=== PATIENT | female | born 1970 | race Caucasian/White ===

== ENCOUNTER 2019-11-13 23:35 | Emergency (ER) | payer MEDICARE, MEDICAID, SELFPAY ==
[2019-11-13 23:36] VITALS: BMI 26.5
[2019-11-13 23:43] VITALS: BP 122/75; PULSE 101; RESP 24; TEMP 36.8; O2SAT 97
--- NOTE | 2019-11-13 23:49 | XRR_ITS ---
PROCEDURE INFORMATION: Exam: XR Chest, 1 View Exam date and time: 11/14/2019 1:04 AM Age: 49 years old Clinical indication: Patient HX: Chest pain with deep inspiration for few days and cough. HX of copd. Shortness of breath TECHNIQUE: Imaging protocol: XR of the chest Views: 1 view. COMPARISON: CR Chest 1 [place] [id number] 10/01/2015 3:09 AM FINDINGS: Lungs: Hyperinflation of the lungs is compatible with COPD. Pleural space: Unremarkable. No pleural effusion. No pneumothorax. Heart/Mediastinum: Unremarkable. No cardiomegaly. Bones/joints: Unremarkable. XR/XR chest 1V portable [id number] IMPRESSION: No acute abnormality.
--- NOTE | 2019-11-13 23:49 | ECG_ITS ---
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 Measurements Intervals [place] Rate: 90 P: 82 NE: 135 QRS: 78 QRSD: 80 T: 76 QT: 321 QTc: 393 Interpretive Statements SINUS RHYTHM Compared to ECG 10/01/2015 02:58:49 No significant changes Electronically Signed On 11-14-2019 17:43:29 CDT by Javon Little M.D. [email or web address] [place] LimitedEstrela Digitalmercy health st[facility].[employer]store/[id number] f
--- NOTE | 2019-11-13 23:53 | ED_ITS ---
HPI - Chest Pain General: Chief Complaint: Chest Pain Stated Complaint: CP Time Seen by Provider: 11/13/19 23:44 History of Present Illness: HPI narrative: Patient complains about chest pain with deep inspiration been going on for a few days has a cough. Says she is been sick for 2 years. She drinks daily. Also smokes 1 to 2 packs cigarettes daily. Has been off anxiety medicine for quite a while. Does take blood pressure medicine. MD complaint: chest discomfort Onset (ago): day(s) Prior episodes: Yes Associated symptoms: Reports dyspnea; Deny abdominal pain, fever(s), nausea or vomiting Review of Systems Const: Denies: fever(s), chills or body aches Eyes: Denies: change in vision or blurry vision ENMT: Denies: throat pain or nasal congestion Card: Denies: chest pain or dyspnea on exertion Resp: Reports: dyspnea, productive cough and pain on inspiration; Denies: non-productive cough GI: Denies: abdominal pain, nausea or vomiting Musc: Denies: extremity pain Skin/Breast: Denies: rash Neuro: Denies: headache(s) Psych: Reports: anxiety; Denies: depression You/Lymph: Denies: easy bruising Physical Exam Const: COMMON NORMALS: no acute distress, average body habitus and patient oriented x3 HENMT: COMMON NORMALS: normocephalic HEAD & SCALP: normal to inspection and normocephalic FACE & SINUS: normal facial exam Eye: COMMON NORMALS: conjunctivae normal GENERAL EYE: appearance normal, both eyes and all related structures CONJUNCTIVA: Yes conjunctivae normal Neck/C-Spine: COMMON NORMALS: no JVD Chest: COMMONS NORMALS: normal inspection of the chest Resp: COMMON NORMALS: normal respiratory effort and clear to auscultation bilaterally AUSCULTATION: clear to auscultation bilaterally Cardio: COMMON NORMALS: no JVD, regular rate and regular rhythm RATE: regular rate RHYTHM: regular rhythm GI: COMMON NORMALS: Normal to inspection, nondistended, normoactive bowel sounds present Extremity: COMMON NORMALS: normal to inspection and full ROM Neuro: COMMON NORMALS: patient oriented x3 Psych: MOOD & AFFECT: Yes anxious Course Vital Signs: Vital signs: Vital Signs Temperature 98.3 F 11/13/19 23:43 Pulse Rate 99 07/01/20 01:15 Respiratory Rate 23 H 11/14/19 01:15 Blood Pressure 124/98 11/14/19 01:15 Pulse Oximetry 96 11/14/19 01:15 MDM - Chest Pain Lab Data: Labs: Lab Results 11/13/19 11/14/19 11/14/19 Range/Units 23:59 00:03 00:03 WBC 7.9 (4.0-10.0) 10^3/ uL RBC 4.55 (4.1-5.3) 10^6/u L Hgb 13.3 (11.5-15.3) g/dL Hct 40.6 (37.0-47.0) % MCV 89.2 (81-99) fL MCH 29.2 (28.0-34.0) pg MCHC 32.8 (30.0-36.0) g/dL RDW 13.8 (12.1-15.1) % Plt Count 325 (130-400) 10^3/c mm MPV 9.1 (7.4-10.4) fL Neut % (Auto) 70.1 % Lymph % (Auto) 20.3 % [place] % (Auto) 7.8 % Eos % (Auto) 0.6 % Baso % (Auto) 0.8 % Neut # (Auto) 5.6 (1.8-7.7) 10^3/u L Lymph # (Auto) 1.6 (0.8-4.8) 10^3/u L [place] # (Auto) 0.6 (0.2-0.9) 10^3/u L Eos # (Auto) 0.1 (0.0-0.8) 10^3/u L Baso # (Auto) 0.1 (0.0-0.1) 10^3/u L Nucleated RBC % (a uto) 0 % Nucleated RBCs # 0.0 /100WBC Sodium 127 L (136-145) mmol/L Potassium 4.5 (3.5-5.1) mmol/L Chloride 88 L (98-107) mmol/L Carbon Dioxide 23 (22-29) mmol/L Anion Gap 20.5 H (5-19) BUN 5 L (6-20) mg/dL Creatinine 0.4 L (0.5-0.9) mg/dL GFR Calculation 169.0 H (90-130) mL/min Glucose 85 (65-115) mg/dL Calculated Osmolal ity 259 L (285-295) mOsm/k g Calcium 8.9 (8.5-10.5) mg/dL Total Bilirubin 0.2 (0.15-1.2) mg/dL AST 49 H (0-32) U/L ALT 46 H (0-33) U/L Alkaline Phosphata se 90 (35-105) IU/L Troponin T Baselin e 14 H (0-10) ng/L Troponin T 120 Min [place] (0-10) ng/L Delta Troponin T (0-10) ABS# Total Protein 7.3 (6.6-8.7) g/dL Albumin 4.1 (3.5-5.2) g/dL Globulin 3.2 (1.3-4.6) g/dL 11/14/19 Range/Units 01:43 WBC (4.0-10.0) 10^3/ uL RBC (4.1-5.3) 10^6/u L Hgb (11.5-15.3) g/dL Hct (37.0-47.0) % MCV (81-99) fL MCH (28.0-34.0) pg MCHC (30.0-36.0) g/dL RDW (12.1-15.1) % Plt Count (130-400) 10^3/c mm MPV (7.4-10.4) fL Neut % (Auto) % Lymph % (Auto) % [place] % (Auto) % Eos % (Auto) % Baso % (Auto) % Neut # (Auto) (1.8-7.7) 10^3/u L Lymph # (Auto) (0.8-4.8) 10^3/u L [place] # (Auto) (0.2-0.9) 10^3/u L Eos # (Auto) (0.0-0.8) 10^3/u L Baso # (Auto) (0.0-0.1) 10^3/u L Nucleated RBC % (a uto) % Nucleated RBCs # /100WBC Sodium (136-145) mmol/L Potassium (3.5-5.1) mmol/L Chloride (98-107) mmol/L Carbon Dioxide (22-29) mmol/L Anion Gap (5-19) BUN (6-20) mg/dL Creatinine (0.5-0.9) mg/dL GFR Calculation (90-130) mL/min Glucose (65-115) mg/dL Calculated Osmolal ity (285-295) mOsm/k g Calcium (8.5-10.5) mg/dL Total Bilirubin (0.15-1.2) mg/dL AST (0-32) U/L ALT (0-33) U/L Alkaline Phosphata se (35-105) IU/L Troponin T Baselin e (0-10) ng/L Troponin T 120 Min [place] 13.76 H (0-10) ng/L Delta Troponin T -0.24 L (0-10) ABS# Total Protein (6.6-8.7) g/dL Albumin (3.5-5.2) g/dL Globulin (1.3-4.6) g/dL EKG Data^: EKG 1: EKG interpretation date: 11/14/19 EKG interpretation time: 00:15 Interpretation: Normal sinus rhythm ventricular rate 90 bpm NC intervals 135 ms QRS durations 80 ms Discharge Plan Discharge Patient Disposition: Home, Self-Care Clinical Impression: Atypical chest pain, Pleurisy Condition: Stable Prescriptions: New Medrol (Jean) 4 mg tablets,dose pack See Rx Instructions .ROUTE .COMPLEX Qty: 21 RF: 0 Discharge Orders: Discharge Order (Routine); Ordered 11/14/19 Ordered By: Maksim Aguero Discharge Diet: Usual diet Discharge Activity: Increase activity as tolerated Patient Instructions: Pleurisy (ED), Emphysema (ED), Abuse of Alcohol (ED) Activity Restrictions/Additional Instructions: Follow-up with medical provider as directed. Take medications as prescribed. Return to the ER or your medical provider if condition worsens. Please read and understand discharge instructions. If any questions ask please. Recommend cutting back on smoking try and stop altogether decrease alcohol intake follow- up your family medical provider soon as possible Coding Level of Care Code ED Bevel Operator for Dariusg Fwd Exam Comprehensive
[2019-11-14] VITALS (33 sets, daily range): BP systolic 115–141; BP diastolic 63–98; PULSE 68–118; RESP 14–28; O2SAT 89–99
[2019-11-14 00:13] LABS: Basophils # 0.1 10^3/uL (0.0-0.1); Basophils % 0.8 %; Eosinophils # 0.1 10^3/uL (0.0-0.8); Eosinophils % 0.6 %; Hematocrit 40.6 % (37.0-47.0); Hemoglobin 13.3 g/dL (11.5-15.3); Lymphocytes # 1.6 10^3/uL (0.8-4.8); Lymphocytes % 20.3 %; Mean Corpuscular HGB Conc 32.8 g/dL (30.0-36.0); Mean Corpuscular Hemoglobin 29.2 pg (28.0-34.0); Mean Corpuscular Volume 89.2 fL (81-99); Mean Platelet Volume 9.1 fL (7.4-10.4); Monocytes # 0.6 10^3/uL (0.2-0.9); Monocytes % 7.8 %; Neutrophils # 5.6 10^3/uL (1.8-7.7); Neutrophils % 70.1 %; Nucleated Red Blood Cells % 0 %; Platelet Count 325 10^3/cmm (130-400); Red Blood Count 4.55 10^6/uL (4.1-5.3); Red Cell Distribution Width 13.8 % (12.1-15.1); White Blood Count 7.9 10^3/uL (4.0-10.0)
[2019-11-14] MEDS: LORazepam 2 mg/mL INJ 1 mL IVP (00:19)
[2019-11-14 00:38] LABS: Alanine Aminotransferase 46 U/L (0-33); Albumin Level 4.1 g/dL (3.5-5.2); Alkaline Phosphatase 90 IU/L (35-105); Anion Gap 20.5 (5-19); Aspartate Amino Transferase 49 U/L (0-32); Blood Urea Nitrogen 5 mg/dL (6-20); Calcium 8.9 mg/dL (8.5-10.5); Carbon Dioxide 23 mmol/L (22-29); Chloride 88 mmol/L (98-107); Globulin 3.2 g/dL (1.3-4.6); Glucose 85 mg/dL (65-115); Osmolality Calculated 259 mOsm/kg (285-295); Potassium 4.5 mmol/L (3.5-5.1); Sodium 127 mmol/L (136-145); Total Bilirubin 0.2 mg/dL (0.15-1.2); Total Protein 7.3 g/dL (6.6-8.7)
[2019-11-14 00:39] LABS: Troponin(5th) Baseline 14 ng/L (0-10)
[2019-11-14] MEDS: ketorolac 30 mg/mL INJ IVP (00:44)
[2019-11-14] MEDS: sodium chloride 0.9% 1,000 ML 999 ML IV (01:04)
--- NOTE | 2019-11-14 01:53 | ECG_ITS ---
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 Measurements Intervals [place] Rate: 90 P: 82 VA: 135 QRS: 78 QRSD: 80 T: 76 QT: 321 QTc: 393 Interpretive Statements SINUS RHYTHM Compared to ECG 10/01/2015 02:58:49 No significant changes Electronically Signed On 11-14-2019 17:45:46 CDT by Javon Little M.D. [email or web address] Digitalw[facility].[employer]/store/NU/[id number] f
[2019-11-14 02:02] LABS: Troponin 5 2HR 13.76 ng/L (0-10)
[2019-11-14 02:04] LABS: Troponin 5 2HR Delta -0.24 ABS# (0-10)
== END 2019-11-14 02:53 | disposition home or self-care (01) ==
PROVIDERS: Emergency Provider Nurse Practitioner Family
DX: R07.89 Other chest pain (principal); R09.1 Pleurisy
CPT/HCPCS: 12345; 36415; 71045; 80053; 84484; 85025; 93005; 96361; 96374; 96375; 99284; J1885; J2060; J2930; J7030

== ENCOUNTER 2020-12-13 20:56 | Emergency (ER) | payer MEDICARE, MEDICAID, SELFPAY ==
[2020-12-13 21:00] VITALS: BP 160/95; PULSE 101; RESP 20; TEMP 36.6; O2SAT 96; BMI 22.8
[2020-12-13 21:08] VITALS: PULSE 101; RESP 19; O2SAT 95
--- NOTE | 2020-12-13 21:35 | PC.NURSE ---
patient refused labs and urine. she states she just wanted detox and doesnt want psychiatric care. she denies suicidal and homicidal ideations. she states her is here and she wants to leave now and go home. I discussed with Dr Stubbs he states if patient wants to leave just have her sign an AMA. I then went to patient with AMA form. she refuses to sign the AMA and leaves with her at 2150
[2020-12-13 21:53] VITALS: BP 140/77; PULSE 98; RESP 18; O2SAT 96
--- NOTE | 2020-12-13 21:58 | W.ED.PSYCH ---
HPI - Psych General: Chief Complaint: Psychiatric Symptoms Stated Complaint: depressed and etoh Time Seen by Provider: 12/13/20 21:04 History of Present Illness: HPI Narrative: The patient is a 50-year-old female who comes to the ER intoxicated. She complains of depression. She denies suicidal, homicidal ideations as well as psychotic symptoms. She says she has drank alcohol today and all she wants is alcohol detox. I informed her we do not specifically do alcohol detox but if she stays we could check her out and give her information for alcohol detox places. I discussed with the psychiatrist who would also be willing to keep her overnight observation for her mental health issues. This was relayed to the patient and she said she did not need help with mental health she needed detox from alcohol. She is not suicidal. She requested to leave AGAINST MEDICAL ADVICE and signed and left on her own. I was providing care in another room and not able to discuss with her the AMA discharge. The nurse told her she could return at any time for evaluation. She is alert and oriented x4 walking and talking well. She understood the consequences of her actions. MD complaint: feels depressed Context: recent alcohol abuse Associated psychiatric symptoms: depression Associated symptoms: Reports no associated symptoms and depression; Deny auditory hallucinations, visual hallucinations, delusions, homicidal ideation or suicidal ideation Review of Systems General: Reports: 10 or more systems reviewed and unremarkable except in HPI and below Const: Denies: fatigue Eyes: Denies: change in vision, blurry vision or eye redness ENMT: Denies: throat pain, swelling of lips/tongue, ear or mastoid pain or nasal congestion Card: Denies: chest pain, palpitations, irregular heart rhythm, edema, dyspnea on exertion or orthopnea Resp: Denies: dyspnea, productive cough or non-productive cough GI: Denies: abdominal pain, diarrhea or GI cramping : Denies: flank pain, difficulty voiding, urinary frequency or urinary urgency Musc: Denies: neck pain, back pain, extremity pain, joint pain, joint redness, limited range of motion or muscle weakness Skin/Breast: Denies: rash, pruritus, erythema, skin pain or skin tenderness Neuro: Denies: headache(s), numbness in extremities, weakness in extremities, sensory changes, difficulty walking, dizziness, confusion or Slurred speech present Psych: Reports: depression; Denies: visual hallucinations, auditory hallucinations, suicidal ideation or homicidal ideation Endo: Denies: polyuria All/Imm: Denies: urticaria, throat swelling or tongue swelling Physical Exam Const: COMMON NORMALS: no acute distress, average body habitus, patient oriented x3, no limitations, healthy appearing, alert and well nourished GENERAL APPEARANCE: cooperative, comfortable, well kempt and well developed ORIENTATION/CONSCIOUSNESS: Yes awake, Yes oriented to person, Yes oriented to place and Yes oriented to time HENMT: COMMON NORMALS: normocephalic, external ears normal and Normal external nose present HEAD & SCALP: normal to inspection and normocephalic NOSE: Normal external nose present EXTERNAL EAR: Yes external ears normal MOUTH: Normal oral and palatal mucosa present THROAT: posterior oropharynx normal Eye: COMMON NORMALS: Equal, round and reactive pupils present and EOMs intact bilaterally GENERAL EYE: appearance normal, both eyes and all related structures PUPIL: Yes Equal, round and reactive pupils present Neck/C-Spine: COMMON NORMALS: full ROM, no lymphadenopathy, no meningeal signs and no JVD GENERAL: Yes normal visual inspection Lymph: LYMPHATIC: no lymphadenopathy noted Chest: COMMONS NORMALS: normal inspection of the chest and normal palpation of entire chest wall Resp: COMMON NORMALS: normal respiratory effort, No retractions, No use of accessory muscles, clear to auscultation bilaterally and percussion normal EFFORT & INSPECTION: Yes able to speak in complete sentences AUSCULTATION: clear to auscultation bilaterally PERCUSSION: percussion normal Cardio: COMMON NORMALS: no JVD, regular rate, regular rhythm, S1 normal heart sound present, S2 normal heart sound present and Peripheral pulses 2+ throughout RATE: regular rate RHYTHM: regular rhythm HEART SOUNDS: S1 normal heart sound present and S2 normal heart sound present PERIPHERAL PULSES: Peripheral pulses 2+ throughout GI: COMMON NORMALS: Normal to inspection, nondistended, normoactive bowel sounds present, Soft to palpation, non-tender and no masses INSPECTION: Yes normal to inspection PALPATION: Yes Soft to palpation : COMMON NORMALS: Yes no CVA tenderness BLADDER/KIDNEY EXAM: Yes no CVA tenderness Back/Pelvis: COMMON NORMALS: no CVA tenderness, thoracic and lumbar spine normal to inspection, no thoracic nor lumbar tenderness and thoraco-lumbar ROM normal Extremity: COMMON NORMALS: normal to inspection, full ROM, capillary refill normal, no joint enlargement and no pedal edema GENERAL: Yes normal exam except as noted Neuro: COMMON NORMALS: patient oriented x3, CN's II-XII intact bilaterally, moves all extremities, no focal motor deficits, no sensory deficits noted and gait normal SENSORIUM/ORIENTATION: Yes alert, Yes oriented to person, Yes oriented to place and Yes oriented to time MENINGEAL SIGNS: Yes no meningeal signs Psych: COMMON NORMALS: mental status grossly normal, Normal thought process present, cooperative, normal affect and speech normal APPEARANCE: Yes well kempt ATTITUDE: Yes calm SPEECH: Yes normal speech MOOD & AFFECT: Yes depressed mood THOUGHT PROCESS: Normal thought process present THOUGHT CONTENT: No Suicidality present, No Homicidality present, No delusions and No Hallucination(s) present Skin: COMMON NORMALS: no rashes or lesions noted GENERAL SKIN EXAM: no rashes or lesions noted Course Vital Signs: Vital signs: Vital Signs Temperature 97.9 F 12/13/20 21:00 Pulse Rate 98 12/13/20 21:53 Respiratory Rate 18 12/13/20 21:53 Blood Pressure 140/77 12/13/20 21:53 Pulse Oximetry 96 12/13/20 21:53 MDM - Psych MDM Narrative: Medical decision making narrative: The patient is here for depression and alcohol detox. More specifically alcohol detox. I notified her we do not directly do alcohol detox but that we could keep her and manage her depression. She denied suicidal ideations and psychotic features. I was providing care with another patient and she refused labs and requested to sign AMA. She left on her own well. Nurse instructed her she could return at any time for reevaluation. The patient only wanted alcohol detox. I told her in the room when I was with her if she waited and stayed for evaluation we could give her information. She left without it unfortunately. Discharge Plan Discharge Patient Disposition: Left Against Medical Advice Clinical Impression: Depression, Alcoholism Prescriptions: No Action Medrol (Jean) 4 mg tablets,dose pack See Rx Instructions .ROUTE .COMPLEX Qty: 21 RF: 0 Referrals: Fernandez,JERONIMO Cortes [Primary Care Provider] - Patient Instructions: Opioid Safety Coding Level of Care Code ED Boilermaker Loftsman for Sandra Fwd Exam Comprehensive
== END 2020-12-13 21:50 | disposition left against medical advice (07) ==
PROVIDERS: Emergency Provider Family Medicine; PCP Nurse Practitioner Family
DX: F10.20 Alcohol dependence, uncomplicated (principal); F32.9 Major depressive disorder, single episode, unspecified; Z53.29 Procedure and treatment not carried out because of patient's decision for other reasons
CPT/HCPCS: 99283

== ENCOUNTER 2021-05-15 01:22 | Emergency (ER) | payer MEDICARE, MEDICAID, SELFPAY ==
[2021-05-15 01:24] VITALS: BP 165/66; PULSE 104; RESP 18; O2SAT 97; BMI 22.1
--- NOTE | 2021-05-15 01:31 | XRR_ITS ---
PROCEDURE INFORMATION: Exam: XR Chest Exam date and time: 05/15/2021 1:31 AM Age: 50 years old Clinical indication: Cough and shortness of breath; Additional info: SOB TECHNIQUE: Imaging protocol: XR of the chest. Views: 1 view. COMPARISON: CR XR chest 1V portable [id number] 11/14/2019 12:48 AM FINDINGS: Lungs: Lungs are clear. Pleural spaces: Questionable small bilateral pleural effusions. Heart/Mediastinum: Unremarkable. No cardiomegaly. Bones/joints: Unremarkable. XR/XR chest 1V portable [id number] IMPRESSION: 1. Questionable small bilateral pleural effusions. 2. Lungs are clear.
--- NOTE | 2021-05-15 01:55 | ED_ITS ---
HPI - SOB/Dyspnea General: Chief Complaint: Shortness of Breath/Dyspnea Stated Complaint: SOB Time Seen by Provider: 05/15/21 01:34 Source: patient and EMS Mode of arrival: EMS Limitations: no limitations History of Present Illness: HPI Narrative: 50-year-old female who has a long history of COPD is on 3 L of oxygen at baseline. She states that her went to [facility] earlier tonight by EMS from got there he tested positive for Covid and was admitted. She states that her son forced her to come to the hospital because he is very concerned that she may have Covid and was concerned with her COPD. States she had a slight cough and slight dyspnea but not much worse than her baseline denies any fevers she is currently on her 3 L which is her baseline and pulse ox is 96% denies any vomiting or diarrhea. She has been in close contact with her no. Associated symptoms: Deny abdominal pain, chest pain, fever(s), nausea or vomiting Review of Systems Const: Denies: fever(s), chills, body aches or change in appetite Eyes: Denies: blurry vision or eye discomfort ENMT: Denies: throat pain or dental pain Card: Denies: chest pain Resp: Reports: dyspnea and non-productive cough GI: Denies: abdominal pain, nausea, vomiting or diarrhea : Denies: dysuria Musc: Denies: neck pain or back pain Skin/Breast: Denies: rash Neuro: Denies: headache(s) Psych: Denies: depression You/Lymph: Denies: easy bruising All/Imm: Denies: urticaria Physical Exam Const: COMMON NORMALS: no acute distress, patient oriented x3 and healthy appearing HENMT: COMMON NORMALS: normocephalic and atraumatic HEAD & SCALP: normocephalic and atraumatic Eye: COMMON NORMALS: Equal, round and reactive pupils present and EOMs intact bilaterally PUPIL: Yes Equal, round and reactive pupils present Neck/C-Spine: COMMON NORMALS: full ROM and supple Chest: COMMONS NORMALS: normal inspection of the chest and normal palpation of entire chest wall Resp: COMMON NORMALS: normal respiratory effort, No retractions and No use of accessory muscles AUSCULTATION: wheezes Cardio: COMMON NORMALS: regular rate, regular rhythm and No murmurs present (Cardio) RATE: regular rate RHYTHM: regular rhythm GI: COMMON NORMALS: Normal to inspection, nondistended, normoactive bowel sounds present, Soft to palpation, non-tender and no masses PALPATION: Yes Soft to palpation Extremity: COMMON NORMALS: normal to inspection and full ROM Neuro: COMMON NORMALS: patient oriented x3, moves all extremities and no focal motor deficits Psych: COMMON NORMALS: mental status grossly normal, Normal thought process present and cooperative THOUGHT PROCESS: Normal thought process present Skin: COMMON NORMALS: no rashes or lesions noted and no wounds GENERAL SKIN EXAM: no rashes or lesions noted Course Vital Signs: Vital signs: Vital Signs Pulse Rate 104 H 05/15/21 01:24 Respiratory Rate 18 05/15/21 01:24 Blood Pressure 165/66 05/15/21 01:24 Pulse Oximetry 97 05/15/21 01:24 MDM - SOB/Dyspnea MDM Narrative: Medical decision making narrative: Patient presents here with COPD exacerbation her Covid test here is negative no signs of pneumonia she is at 97% on her baseline oxygen and vitals are normal we will place her on 5-day steroid she is stable for discharge is to follow-up PCP and return if worsening she understands agrees to plan. Lab Data: Labs: Lab Results 05/15/21 05/15/21 05/15/21 01:53 01:53 01:56 WBC 5.9 10^3/uL 10^3/ uL (4.0-10.0) RBC 4.35 10^6/uL 10^6 /uL (4.1-5.3) Hgb 12.4 g/dL g/dL (11.5-15.3) Hct 37.8 % % (37.0-47.0) MCV 86.9 fl fl (81-99) MCH 28.5 pg pg (28.0-34.0) MCHC 32.8 g/dL g/dL (30.0-36.0) RDW 12.9 % % (12.1-15.1) Plt Count 279 10^3/cmm 10^3 /cmm (130-400) MPV 9.3 fL fL (7.4-10.4) Neut % (Auto) 60.0 % % Lymph % (Auto) 29.0 % % [place] % (Auto) 8.6 % % Eos % (Auto) 1.7 % % Baso % (Auto) 0.5 % % Neut # (Auto) 3.56 10^3/uL 10^3 /uL (1.8-7.7) Lymph # (Auto) 1.7 10^3/uL 10^3/ uL (0.8-4.8) [place] # (Auto) 0.5 10^3/uL 10^3/ uL (0.2-0.9) Eos # (Auto) 0.1 10^3/uL 10^3/ uL (0.0-0.8) Baso # (Auto) 0.0 10^3/uL 10^3/ uL (0.0-0.1) Nucleated RBC % (a uto) 0 % % Nucleated RBCs # 0.0 /100WBC /100W BC Specimen Type Arterial Sample Site Radial, left ABG pH 7.34 L (7.35-7.45) ABG pCO2 59.7 mmHg H mmHg (35-45) ABG pO2 167.0 mmHg H mmHg (80.0-100.0) ABG HCO3 32.4 mmol/L H mmo l/L (22-26) ABG Base Excess 5.0 mmol/L H mmol /L (-2.0-2.0) [place] Test Pos Hematocrit 39.5 % % (37-47) Hgb O2 Saturation 93.7 % L % (95-100) Carboxyhemoglobin 5.0 %THgb %THgb (0.4-20.1) Methemoglobin 1.0 % % (0.4-1.5) Total Hemoglobin 12.9 g/dL g/dL (12-16) O2 Delivery Device Nc O2 Liters/Min 3.0 % % Cosmetics Counter Manager ID Nicer2 Sodium 137 mmol/L mmol/L (136-145) Potassium 4.6 mmol/L mmol/L (3.5-5.1) Chloride 97 mmol/L L mmol/ L (98-107) Carbon Dioxide 31 mmol/L H mmol/ L (22-29) Anion Gap 13.6 (5-19) BUN 6 mg/dL mg/dL (6-20) Creatinine 0.3 mg/dL L mg/dL (0.5-0.9) GFR Calculation 234.5 mL/min H mL /min (90-130) Glucose 85 mg/dL mg/dL (65-115) Calculated Osmolal ity 281 mOsm/kg L mOs m/kg (285-295) Calcium 8.3 mg/dL L mg/dL (8.5-10.5) Total Bilirubin 0.3 mg/dL mg/dL (0.15-1.2) AST 39 U/L H U/L (0-32) ALT 24 U/L U/L (0-33) Alkaline Phosphata se 70 IU/L IU/L (35-105) Total Protein 6.8 g/dL g/dL (6.6-8.7) Albumin 4.1 g/dL g/dL (3.5-5.2) Globulin 2.7 g/dL g/dL (1.3-4.6) SARS-CoV-2 Ag (Rap id) 05/15/21 01:58 WBC RBC Hgb Hct MCV MCH MCHC RDW Plt Count MPV Neut % (Auto) Lymph % (Auto) [place] % (Auto) Eos % (Auto) Baso % (Auto) Neut # (Auto) Lymph # (Auto) [place] # (Auto) Eos # (Auto) Baso # (Auto) Nucleated RBC % (a uto) Nucleated RBCs # Specimen Type Sample Site ABG pH ABG pCO2 ABG pO2 ABG HCO3 ABG Base Excess [place] Test Hematocrit Hgb O2 Saturation Carboxyhemoglobin Methemoglobin Total Hemoglobin O2 Delivery Device O2 Liters/Min Cosmetics Counter Manager ID Sodium Potassium Chloride Carbon Dioxide Anion Gap BUN Creatinine GFR Calculation Glucose Calculated Osmolal ity Calcium Total Bilirubin AST ALT Alkaline Phosphata se Total Protein Albumin Globulin SARS-CoV-2 Ag (Rap id) Negative (Negative) Discharge Plan Discharge Patient Disposition: Home Clinical Impression: COPD exacerbation Condition: Stable Prescriptions: New prednisone 50 mg tablet 50 mg PO DAILY Qty: 5 RF: 0 No Action Medrol (Jean) 4 mg tablets,dose pack See Rx Instructions .ROUTE .COMPLEX Qty: 21 RF: 0 Discharge Orders: Discharge ED (Routine); Ordered 05/15/21 Ordered By: Baylee Hernandez Referrals: Jim,JERONIMO Cortes [Primary Care Provider] - 1-3 days Discharge Diet: Advance as tolerated Discharge Activity: Resume usual activity Patient Instructions: COPD (Chronic Obstructive Pulmonary Disease) (ED) Coding Level of Care Code ED Parts Identifier for Chg Fwd Exam Comprehensive
[2021-05-15] MEDS: ipratropium-albuterol 3 mL Neb INHALATION (01:56)
[2021-05-15 02:01] LABS: Basophils % 0.5 %; Eosinophils # 0.1 10^3/uL (0.0-0.8); Eosinophils % 1.7 %; Hematocrit 37.8 % (37.0-47.0); Hemoglobin 12.4 g/dL (11.5-15.3); Lymphocytes # 1.7 10^3/uL (0.8-4.8); Mean Corpuscular HGB Conc 32.8 g/dL (30.0-36.0); Mean Corpuscular Hemoglobin 28.5 pg (28.0-34.0); Mean Corpuscular Volume 86.9 fl (81-99); Mean Platelet Volume 9.3 fL (7.4-10.4); Monocytes # 0.5 10^3/uL (0.2-0.9); Monocytes % 8.6 %; Neutrophils # 3.56 10^3/uL (1.8-7.7); Nucleated Red Blood Cells % 0 %; Platelet Count 279 10^3/cmm (130-400); Red Blood Count 4.35 10^6/uL (4.1-5.3); Red Cell Distribution Width 12.9 % (12.1-15.1); White Blood Count 5.9 10^3/uL (4.0-10.0)
[2021-05-15 02:07] LABS: ABG PCO2 59.7 mmHg (35-45); ABG PH Result 7.34 (7.35-7.45); Arterial Blood Gas Hematocrit 39.5 % (37-47); Blood Gas Allen Test Pos; Blood Gas Sample Site Radial, left; Blood Gas Sample Type Arterial; HCO3 ABG 32.4 mmol/L (22-26); HGB O2 Sat 93.7 % (95-100); Oxygen Device NC; Total Hemoglobin 12.9 g/dL (12-16)
[2021-05-15 02:18] LABS: SARS Covid-2 Antigen Negative (Negative)
[2021-05-15 02:23] LABS: Alanine Aminotransferase 24 U/L (0-33); Albumin Level 4.1 g/dL (3.5-5.2); Alkaline Phosphatase 70 IU/L (35-105); Anion Gap 13.6 (5-19); Aspartate Amino Transferase 39 U/L (0-32); Blood Urea Nitrogen 6 mg/dL (6-20); Calcium 8.3 mg/dL (8.5-10.5); Carbon Dioxide 31 mmol/L (22-29); Chloride 97 mmol/L (98-107); Globulin 2.7 g/dL (1.3-4.6); Glomerular Filtration Rate 234.5 mL/min (90-130); Glucose 85 mg/dL (65-115); Osmolality Calculated 281 mOsm/kg (285-295); Potassium 4.6 mmol/L (3.5-5.1); Sodium 137 mmol/L (136-145); Total Bilirubin 0.3 mg/dL (0.15-1.2); Total Protein 6.8 g/dL (6.6-8.7)
== END 2021-05-15 04:34 | disposition home or self-care (01) ==
PROVIDERS: Emergency Provider Emergency Medicine; PCP Nurse Practitioner Family
DX: J44.1 Chronic obstructive pulmonary disease with (acute) exacerbation (principal); Z20.822 Contact with and (suspected) exposure to COVID-19
CPT/HCPCS: 71045; 80053; 82805; 85025; 87426; 96374; 99283; J2930